=== PATIENT | male | born 1950 | race Hispanic/Latino ===

== ENCOUNTER → 2017-11-25 | Outpatient (CLI) | payer OTHER | END | disposition home or self-care (01) | LOC: RAH 10:16 | PROVIDERS: ATTEND Urology | DX: K80.20 Calculus of gallbladder without cholecystitis without obstruction (principal); N20.0 Calculus of kidney; Z87.442 Personal history of urinary calculi | CPT/HCPCS: 74018; 76100 ==

== ENCOUNTER → 2018-06-02 | Outpatient (CLI) | payer OTHER | END | disposition home or self-care (01) | LOC: RAH 09:35 | PROVIDERS: ATTEND Urology | DX: N20.0 Calculus of kidney (principal); M47.895 Other spondylosis, thoracolumbar region | CPT/HCPCS: 74018; 76100 ==

== ENCOUNTER → 2020-12-16 | Outpatient (CLI) | payer OTHER | END | disposition home or self-care (01) | LOC: RAH 08:14 | PROVIDERS: ATTEND Urology | DX: N20.0 Calculus of kidney (principal); K80.20 Calculus of gallbladder without cholecystitis without obstruction; K57.30 Diverticulosis of large intestine without perforation or abscess without bleeding | CPT/HCPCS: 74176 ==

== ENCOUNTER 2021-02-24 13:00 | Inpatient (IN) | payer OTHER ==
[~2021-02-24] VITALS: Ht 182.9 cm; Wt 74.4 kg
[2021-02-24 11:46] LABS: BASOPHILS % (AUTO) 0.6 % (0.0-5.0); EOSINOPHILS % (AUTO) 1.9 % (0.0-8.0); HEMATOCRIT 50.6 % (42-54); LYMPHOCYTES % (AUTO) 28.1 % (21.0-51.0); MEAN CORPUSCULAR HEMOGLOBIN 27.8 pg (27.0-33.0); MEAN CORPUSCULAR HGB CONC 32.4 g/dL (32.0-36.0); MEAN CORPUSCULAR VOLUME 85.9 fL (79-99); PLATELET COUNT (AUTO) 276 K/uL (130-400); RED BLOOD CELL COUNT(AUTO) 5.89 MIL/uL (4.50-6.20); RED CELL DISTRIBUTION WIDTH 14.7 % (11.0-15.5)
[2021-02-24 11:55] LABS: HEMOGLOBIN A1C 5.9 % (4.0-6.0)
[2021-02-24 12:00] LABS: INR 0.98 (0.85-1.15); PROTHROMBIN TIME 10.7 SEC (9.6-11.6)
[2021-02-24 12:01] LABS: BILIRUBIN,TOTAL 0.8 mg/dL (0.2-1.0); CREATININE 1.2 mg/dL (0.5-1.5); POTASSIUM 3.7 mmol/L (3.5-5.1); TOTAL PROTEIN, SERUM 8.3 g/dL (6.0-8.3)
[2021-02-27 09:41] VITALS: BP 140/68
[2021-02-27] MEDS ORDERED: METO5TAB2 PO (10:14)
[2021-02-27] MEDS ORDERED: AEC81 PO (10:14)
[2021-02-27] MEDS ORDERED: ATOR40TA69 PO (10:14)
[2021-02-27] MEDS ORDERED: PANT40TA54 PO (10:14)
[2021-02-27] MEDS ORDERED: FINA5TAB41 PO (10:14)
[2021-02-27] MEDS ORDERED: POTA10TA9 PO (10:14)
[2021-02-27] MEDS ORDERED: CHLO50TA PO (10:14)
[2021-02-27] MEDS ORDERED: SUCR1TAB28 PO (10:14)
[2021-02-27] MEDS ORDERED: IBUP-2077 PO (10:14)
[2021-02-28] VITALS (16 sets, daily range): BP systolic 89–172; BP diastolic 39–110
[2021-02-28] MEDS: CEFAZOLIN SODIUM 1 GM VIAL IVP SCH ×2 (05:00→12:00)
[2021-02-28] MEDS ORDERED: 0.9%NACL 1000ML 1,000 ML IV ONE (09:26)
[2021-02-28] MEDS ORDERED: AMINOCAPROIC ACID 5,000MG VIAL 15,000 MG in 0.9% NACL 500ML IV.SOLN 420 ML IV PRN (10:00)
[2021-02-28] MEDS ORDERED: EPINEPHRINE PF 1MG AMP 10 MG in 0.9% NACL 250ML 240 ML IV PRN (10:00)
[2021-02-28] MEDS ORDERED: NOREPINEPHRINE BITARTRATE 8 MG in DEXTROSE 5%-WATER 250 ML IV PRN (10:00)
[2021-02-28] MEDS ORDERED: CEFAZOLIN SODIUM 1 GM VIAL ONE (10:16)
[2021-02-28] MEDS ORDERED: OCTYL 2-CYANOACRYLATE 1 EACH TP ONE (10:16)
[2021-02-28] MEDS ORDERED: PAPAVERINE HCL 30 MG/ML 2ML VIAL ONE (10:17)
[2021-02-28] MEDS ORDERED: NITROGLYCERIN 50MG/D5W 250ML 1 BOT ONE (10:18)
[2021-02-28] MEDS ORDERED: ESMOLOL HCL 10 MG/ML 10 ML VIAL ONE (11:58)
[2021-02-28] MEDS ORDERED: HEPARIN 10,000 UNIT/10ML (1,000 UNIT/ML) VIAL ONE ×2 (11:58→12:25)
[2021-02-28] MEDS ORDERED: PROTAMINE SULFATE 10 MG/ML 25ML VIAL IV ONE (11:58)
[2021-02-28] MEDS ORDERED: EPINEPHRINE PF 1MG AMP ONE (11:58)
[2021-02-28] MEDS ORDERED: AMINOCAPROIC ACID 5,000MG VIAL ONE (11:58)
[2021-02-28] MEDS ORDERED: SODIUM BICARB 50MEQ 50ML VIAL 150 ML ONE (11:58)
[2021-02-28] MEDS ORDERED: LIDOCAINE PF 100MG/5ML (2%) SYRINGE 5ML ONE ×2 (11:58→12:00)
[2021-02-28] MEDS ORDERED: NOREPINEPHRINE BITARTRATE 1 MG/1 ML ML IV ONE (11:58)
[2021-02-28] MEDS ORDERED: FENTANYL CITRATE PF 50 MCG/1 ML 20ML VIAL IJ ONE (11:59)
[2021-02-28] MEDS ORDERED: ROCURONIUM 10MG/1ML SYR 10 MG/ML ML ONE (11:59)
[2021-02-28] MEDS ORDERED: MIDAZOLAM HCL 1 MG/ML 2ML VIAL ONE (11:59)
[2021-02-28] MEDS ORDERED: PROPOFOL 10 MG/ML 20ML VIAL IV ONE (11:59)
[2021-02-28] MEDS ORDERED: ETOMIDATE 20MG VIAL ONE (11:59)
[2021-02-28] MEDS ORDERED: ATROPINE 1MG SYG IVP ONE (12:23)
[2021-02-28 12:34] LABS: ABG BASE EXCESS -1.2 mmol/L (-2.0-3.0); ABG HCO3 25.4 mmol/L (21.0-28.0); ABG OXYGEN SATURATION 99.3 % (95.0-99.0); ABG PCO2 49 mmHg (35-48)
[2021-02-28] MEDS ORDERED: AMIODARONE 150MG VIAL ONE (12:34)
[2021-02-28] MEDS ORDERED: SODIUM BICARB 50MEQ 50ML VIAL 250 ML ONE (12:37)
[2021-02-28] MEDS ORDERED: LABETALOL 20MG VIAL IV ONE (12:51)
[2021-02-28 13:14] LABS: ABG HCO3 32.4 mmol/L (21.0-28.0); ABG OXYGEN SATURATION 99.2 % (95.0-99.0); ABG PCO2 54 mmHg (35-48)
[2021-02-28] MEDS ORDERED: POTASSIUM CHLORIDE 20MEQ/100ML 300 ML IV ONE (13:14)
[2021-02-28 14:31] LABS: ABG BASE EXCESS 2.3 mmol/L (-2.0-3.0); ABG HCO3 27.4 mmol/L (21.0-28.0); ABG OXYGEN SATURATION 99.2 % (95.0-99.0); ABG PCO2 45 mmHg (35-48)
[2021-02-28] MEDS ORDERED: SODIUM BICARB 50MEQ 50ML VIAL IV PRN (15:00)
[2021-02-28] MEDS ORDERED: EPINEPHRINE PF 1MG AMP 10 MG in DEXTROSE 5%-WATER 250 ML IV PRN (15:00)
[2021-02-28] MEDS ORDERED: 0.9%NACL 10ML VIAL IVP PRN (15:00)
[2021-02-28] MEDS ORDERED: ASPIRIN 81MG CHEW TAB PO ONE (15:00)
[2021-02-28] MEDS ORDERED: DEXTROSE 50%-WATER 50 ML DISP.SYRIN IV PRN (15:00)
[2021-02-28] MEDS ORDERED: CALCIUM GLUC 1GM 1 GM in 0.9%NACL 50ML 50 ML IV PRN (15:00)
[2021-02-28] MEDS ORDERED: AMINOCAPROIC ACID 5,000MG VIAL 15,000 MG in 0.9% NACL 250ML 250 ML IV SCH (15:00)
[2021-02-28] MEDS ORDERED: GLUCAGON 1MG KIT 1 MG ML IM PRN (15:00)
[2021-02-28] MEDS ORDERED: PROPOFOL 1000 MG/100 ML 100 ML IV PRN (15:00)
[2021-02-28] MEDS ORDERED: MORPHINE 2 MG SYG IV PRN (15:00)
[2021-02-28] MEDS ORDERED: ALBUMIN (HUMAN) 5% 250 ML IV PRN (15:00)
[2021-02-28] MEDS ORDERED: 0.9% NACL 500ML IV.SOLN 500 ML IV SCH (15:00)
[2021-02-28] MEDS ORDERED: ACETAMINOPHEN 650 MG SUPPOSITORY RC PRN (15:00)
[2021-02-28] MEDS ORDERED: ONDANSETRON 4MG INJ IV PRN (15:00)
[2021-02-28] MEDS ORDERED: NITROGLYCERIN 50MG/D5W 250ML 250 BOT IV SCH (15:00)
[2021-02-28] MEDS ORDERED: POTASSIUM PHOS 15 mMOL+NS250ML 250 ML IV PRN (15:00)
[2021-02-28] MEDS ORDERED: NOREPINEPHRIN 4MG/NS 250ML 250 ML IV PRN (15:00)
[2021-02-28] MEDS ORDERED: INSULIN REGULAR, HUMAN 3ML 100 UNIT in 0.9%NACL 100ML 99 ML IV SCH ×2 (15:00)
[2021-02-28] MEDS: MORPHINE 4 MG SYG IV PRN ×2 (15:39→18:45)
[2021-02-28 15:50] LABS: ABG BASE EXCESS 0.3 mmol/L (-2.0-3.0); ABG HCO3 25.9 mmol/L (21.0-28.0); ABG OXYGEN SATURATION 97.8 % (95.0-99.0); ABG PCO2 46 mmHg (35-48)
[2021-02-28] MEDS: 0.9%NACL 1000ML 1,000 ML IV SCH ×2 (16:15→19:28)
[2021-02-28] MEDS: SUCRALFATE 1 GM TABLET PO SCH (16:16)
[2021-02-28] MEDS: METOCLOPRAMIDE 5 MG TABLET PO SCH (16:17)
[2021-02-28 16:31] LABS: HEMATOCRIT 41.9 % (42-54); MEAN CORPUSCULAR HEMOGLOBIN 27.5 pg (27.0-33.0); MEAN CORPUSCULAR HGB CONC 32.9 g/dL (32.0-36.0); MEAN CORPUSCULAR VOLUME 83.6 fL (79-99); RED BLOOD CELL COUNT(AUTO) 5.01 MIL/uL (4.50-6.20); RED CELL DISTRIBUTION WIDTH 14.6 % (11.0-15.5); WHITE BLOOD COUNT (AUTO) 25.6 K/uL (4.8-10.8)
[2021-02-28 16:42] LABS: INR 1.07 (0.85-1.15); PROTHROMBIN TIME 11.6 SEC (9.6-11.6)
[2021-02-28 16:43] LABS: PARTIAL THROMBOPLASTIN TIME 20.8 SEC (26.3-35.5)
[2021-02-28 16:45] LABS: CREATININE 1.1 mg/dL (0.5-1.5); MAGNESIUM 1.6 mg/dL (1.80-2.40); PHOSPHORUS 3.4 mg/dL (2.5-4.9)
[2021-02-28 16:51] LABS: ABG BASE EXCESS 0.7 mmol/L (-2.0-3.0); ABG HCO3 26.5 mmol/L (21.0-28.0); ABG OXYGEN SATURATION 98.5 % (95.0-99.0); ABG PCO2 46 mmHg (35-48)
[2021-02-28] MEDS: MAGNESIUM 2GM PREMIX 50ML 50 ML IV PRN (18:18)
[2021-02-28 18:28] LABS: ABG BASE EXCESS 1.5 mmol/L (-2.0-3.0); ABG HCO3 27.5 mmol/L (21.0-28.0); ABG PCO2 49 mmHg (35-48)
[2021-02-28] MEDS: POTASSIUM CHLORIDE 20MEQ/100ML 100 ML IV PRN ×2 (19:00→20:29)
[2021-02-28] MEDS ORDERED: ALBUMIN (HUMAN) 5% 250 ML IV ONE (19:33)
[2021-02-28] MEDS: CEFAZOLIN SODIUM 1 GM VIAL IV SCH (19:54)
[2021-02-28] MEDS: ACETAMINOPHEN 325 MG TAB PO PRN (20:01)
[2021-02-28] MEDS: FAMOTIDINE 20MG VIAL IV SCH (20:01)
[2021-02-28] MEDS: ATORVASTATIN 40 MG TABLET PO SCH (20:02)
[2021-02-28 20:23] LABS: ABG BASE EXCESS -0.8 mmol/L (-2.0-3.0); ABG HCO3 24.6 mmol/L (21.0-28.0); ABG OXYGEN SATURATION 96.6 % (95.0-99.0); ABG PCO2 44 mmHg (35-48)
[2021-02-28] MEDS ORDERED: PHARMACY COMMUNICATION MISC SCH (20:30)
[2021-02-28 21:16] LABS: ABG HCO3 28.8 mmol/L (21.0-28.0); ABG OXYGEN SATURATION 96.8 % (95.0-99.0); ABG PCO2 49 mmHg (35-48)
[2021-02-28 22:15] LABS: ABG BASE EXCESS 0.3 mmol/L (-2.0-3.0); ABG HCO3 26.1 mmol/L (21.0-28.0); ABG OXYGEN SATURATION 96.8 % (95.0-99.0); ABG PCO2 47 mmHg (35-48)
[2021-02-28 23:32] LABS: ABG BASE EXCESS 1.3 mmol/L (-2.0-3.0); ABG HCO3 27.2 mmol/L (21.0-28.0); ABG OXYGEN SATURATION 96.6 % (95.0-99.0); ABG PCO2 48 mmHg (35-48)
[2021-02-28] MEDS: TRAMADOL HCL 50 MG TABLET PO PRN (23:56)
[2021-03-01] VITALS (27 sets, daily range): BP systolic 91–140; BP diastolic 37–63
[2021-03-01] MEDS: ACETAMINOPHEN 325 MG TAB PO PRN (00:41)
[2021-03-01] MEDS: CEFAZOLIN SODIUM 1 GM VIAL IVP SCH (01:39)
[2021-03-01] MEDS: CEFAZOLIN SODIUM 1 GM VIAL IV SCH ×2 (03:16→12:05)
[2021-03-01 03:24] LABS: ABG BASE EXCESS 0.1 mmol/L (-2.0-3.0); ABG HCO3 27.2 mmol/L (21.0-28.0); ABG PCO2 54 mmHg (35-48)
[2021-03-01 03:56] LABS: HEMATOCRIT 38.4 % (42-54); MEAN CORPUSCULAR HEMOGLOBIN 28.2 pg (27.0-33.0); MEAN CORPUSCULAR HGB CONC 32.6 g/dL (32.0-36.0); MEAN CORPUSCULAR VOLUME 86.5 fL (79-99); RED BLOOD CELL COUNT(AUTO) 4.44 MIL/uL (4.50-6.20); WHITE BLOOD COUNT (AUTO) 17.3 K/uL (4.8-10.8)
[2021-03-01 04:10] LABS: CREATININE 1.3 mg/dL (0.5-1.5); MAGNESIUM 1.8 mg/dL (1.80-2.40); PHOSPHORUS 4.2 mg/dL (2.5-4.9); POTASSIUM 4.3 mmol/L (3.5-5.1)
[2021-03-01 04:14] LABS: INR 1.06 (0.85-1.15); PROTHROMBIN TIME 11.5 SEC (9.6-11.6)
[2021-03-01 04:16] LABS: PARTIAL THROMBOPLASTIN TIME 26.5 SEC (26.3-35.5)
[2021-03-01] MEDS: MAGNESIUM 2GM PREMIX 50ML 50 ML IV PRN (04:16)
[2021-03-01 04:17] LABS: ABG BASE EXCESS -0.3 mmol/L (-2.0-3.0); ABG HCO3 24.9 mmol/L (21.0-28.0); ABG OXYGEN SATURATION 97.7 % (95.0-99.0); ABG PCO2 43 mmHg (35-48)
[2021-03-01] MEDS: SUCRALFATE 1 GM TABLET PO SCH ×2 (07:30→16:30)
[2021-03-01] MEDS: TRAMADOL HCL 50 MG TABLET PO PRN ×2 (08:03→23:56)
[2021-03-01] MEDS ORDERED: IPRATROPIUM/ALBUTEROL SULFATE 3 ML SOLUTION IH PRN (09:00)
[2021-03-01] MEDS ORDERED: ASPIRIN 81MG CHEW TAB ONE (09:47)
[2021-03-01] MEDS: METOCLOPRAMIDE 5 MG TABLET PO SCH ×3 (10:03→17:28)
[2021-03-01] MEDS: FAMOTIDINE 20MG VIAL IV SCH ×2 (10:03→20:40)
[2021-03-01] MEDS: FINASTERIDE 5 MG TABLET PO SCH (10:04)
[2021-03-01] MEDS: ASPIRIN 81MG CHEW TAB PO SCH (12:05)
[2021-03-01] MEDS: ATORVASTATIN 40 MG TABLET PO SCH (20:40)
[2021-03-01] MEDS ORDERED: ATORVASTATIN 20 MG TABLET PO SCH (21:00)
[2021-03-02] VITALS (13 sets, daily range): BP systolic 109–150; BP diastolic 51–74
[2021-03-02] MEDS: ACETAMINOPHEN 325 MG TAB PO PRN (02:49)
[2021-03-02 05:09] LABS: HEMATOCRIT 38.8 % (42-54); MEAN CORPUSCULAR HEMOGLOBIN 27.4 pg (27.0-33.0); MEAN CORPUSCULAR HGB CONC 31.4 g/dL (32.0-36.0); MEAN CORPUSCULAR VOLUME 87.2 fL (79-99); RED BLOOD CELL COUNT(AUTO) 4.45 MIL/uL (4.50-6.20); WHITE BLOOD COUNT (AUTO) 16.1 K/uL (4.8-10.8)
[2021-03-02 05:17] LABS: CREATININE 1.1 mg/dL (0.5-1.5); POTASSIUM 3.6 mmol/L (3.5-5.1)
[2021-03-02] MEDS: POTASSIUM CHLORIDE 20MEQ/100ML 100 ML IV PRN (05:51)
[2021-03-02] MEDS ORDERED: KCL 20 MEQ ERTAB PO PRN (07:30)
[2021-03-02] MEDS ORDERED: POTASSIUM CHLORIDE 20MEQ/100ML 100 ML IV PRN (07:30)
[2021-03-02] MEDS ORDERED: POTASSIUM CHLORIDE 10% ELIXIR 20 MEQ/15 ML UDCUP PO PRN (07:30)
[2021-03-02] MEDS ORDERED: LIDOCAINE HCL-MPF 1% 2ML VIAL IV PRN (07:30)
[2021-03-02] MEDS: FINASTERIDE 5 MG TABLET PO SCH (07:52)
[2021-03-02] MEDS: FAMOTIDINE 20MG TAB PO SCH ×2 (07:52→21:20)
[2021-03-02] MEDS: METOCLOPRAMIDE 5 MG TABLET PO SCH ×3 (07:52→17:25)
[2021-03-02] MEDS: FUROSEMIDE 20 MG TABLET PO SCH (07:52)
[2021-03-02] MEDS: SUCRALFATE 1 GM TABLET PO SCH ×2 (07:52→17:25)
[2021-03-02] MEDS: METOPROLOL TARTRATE 25 MG TAB PO SCH ×2 (07:53→21:20)
[2021-03-02] MEDS: ASPIRIN 81MG CHEW TAB PO SCH (07:53)
[2021-03-02] MEDS: ENOXAPARIN SODIUM 30 MG/0.3 ML SQ SCH (07:54)
[2021-03-02] MEDS: TRAMADOL HCL 50 MG TABLET PO PRN ×2 (07:57→18:22)
[2021-03-02] MEDS: ATORVASTATIN 40 MG TABLET PO SCH (21:20)
[2021-03-03] MEDS: TRAMADOL HCL 50 MG TABLET PO PRN ×2 (00:24→15:20)
[2021-03-03 03:40] VITALS: BP 122/63
[2021-03-03 03:46] LABS: HEMATOCRIT 37.4 % (42-54); MEAN CORPUSCULAR HEMOGLOBIN 27.7 pg (27.0-33.0); MEAN CORPUSCULAR HGB CONC 32.4 g/dL (32.0-36.0); MEAN CORPUSCULAR VOLUME 85.6 fL (79-99); RED BLOOD CELL COUNT(AUTO) 4.37 MIL/uL (4.50-6.20); RED CELL DISTRIBUTION WIDTH 14.6 % (11.0-15.5); WHITE BLOOD COUNT (AUTO) 17.7 K/uL (4.8-10.8)
[2021-03-03 04:06] LABS: POTASSIUM 3.7 mmol/L (3.5-5.1)
[2021-03-03] MEDS: METOCLOPRAMIDE 5 MG TABLET PO SCH ×3 (05:49→16:47)
[2021-03-03] MEDS: SUCRALFATE 1 GM TABLET PO SCH ×2 (05:49→15:20)
[2021-03-03 08:00] VITALS: BP 130/65
[2021-03-03] MEDS: ENOXAPARIN SODIUM 30 MG/0.3 ML SQ SCH (08:59)
[2021-03-03] MEDS: ASPIRIN 81MG CHEW TAB PO SCH (09:00)
[2021-03-03] MEDS: FAMOTIDINE 20MG TAB PO SCH ×2 (09:00→21:57)
[2021-03-03] MEDS: METOPROLOL TARTRATE 25 MG TAB PO SCH ×2 (09:01→21:57)
[2021-03-03] MEDS: FUROSEMIDE 20 MG TABLET PO SCH (09:01)
[2021-03-03] MEDS: FINASTERIDE 5 MG TABLET PO SCH (09:01)
[2021-03-03 11:48] VITALS: BP 113/67
[2021-03-03 15:36] VITALS: BP 119/67
[2021-03-03 19:07] VITALS: BP 122/62
[2021-03-03] MEDS: ATORVASTATIN 40 MG TABLET PO SCH (21:57)
[2021-03-03 23:23] VITALS: BP 122/66
[2021-03-04] MEDS: TRAMADOL HCL 50 MG TABLET PO PRN ×2 (03:34→08:10)
[2021-03-04 03:54] VITALS: BP 108/61
[2021-03-04 08:00] VITALS: BP 127/70
[2021-03-04] MEDS: ENOXAPARIN SODIUM 30 MG/0.3 ML SQ SCH (08:09)
[2021-03-04] MEDS: METOPROLOL TARTRATE 25 MG TAB PO SCH ×2 (08:09→21:55)
[2021-03-04] MEDS: FAMOTIDINE 20MG TAB PO SCH ×2 (08:10→21:55)
[2021-03-04] MEDS: FINASTERIDE 5 MG TABLET PO SCH (08:10)
[2021-03-04] MEDS: SUCRALFATE 1 GM TABLET PO SCH ×2 (08:10→16:00)
[2021-03-04] MEDS: FUROSEMIDE 20 MG TABLET PO SCH (08:10)
[2021-03-04] MEDS: ASPIRIN 81MG CHEW TAB PO SCH (08:10)
[2021-03-04] MEDS: METOCLOPRAMIDE 5 MG TABLET PO SCH ×3 (08:10→16:00)
[2021-03-04] MEDS ORDERED: METO25 PO (10:46)
[2021-03-04] MEDS ORDERED: FURO20TA6 PO (10:46)
[2021-03-04 12:00] VITALS: BP 112/66
[2021-03-04 16:00] VITALS: BP 117/69
[2021-03-04 20:00] VITALS: BP 134/69
[2021-03-04] MEDS: ATORVASTATIN 40 MG TABLET PO SCH (21:55)
[2021-03-05] VITALS: BP 110/64
[2021-03-05] MEDS: TRAMADOL HCL 50 MG TABLET PO PRN (03:45)
[2021-03-05 04:00] VITALS: BP 130/75
[2021-03-05] MEDS: SUCRALFATE 1 GM TABLET PO SCH ×2 (06:40→15:56)
[2021-03-05] MEDS: METOCLOPRAMIDE 5 MG TABLET PO SCH ×2 (06:40→08:36)
[2021-03-05 08:26] VITALS: BP 113/61
[2021-03-05] MEDS: FINASTERIDE 5 MG TABLET PO SCH (08:35)
[2021-03-05] MEDS: METOPROLOL TARTRATE 25 MG TAB PO SCH (08:35)
[2021-03-05] MEDS: ASPIRIN 81MG CHEW TAB PO SCH (08:35)
[2021-03-05] MEDS: FAMOTIDINE 20MG TAB PO SCH (08:36)
[2021-03-05] MEDS: ENOXAPARIN SODIUM 30 MG/0.3 ML SQ SCH (08:36)
[2021-03-05] MEDS: FUROSEMIDE 20 MG TABLET PO SCH (08:36)
[2021-03-05 12:40] VITALS: BP 108/61
[2021-03-05] MEDS: ACETAMINOPHEN 325 MG TAB PO PRN (16:00)
[2021-03-05 16:05] VITALS: BP 119/72
== END 2021-03-05 17:32 | disposition home or self-care (01) | DRG 235 ==
LOC: EDSTATUS 13:00 → DAHIP 02-28 09:25 → 2CV 02-28 12:02 → 2CH 03-01 05:08 → 2DH 03-02 20:36 → 4AH 03-04 03:33 → 4DH 03-04 07:15
PROVIDERS: ADMIT Thoracic Surgery (Cardiothoracic Vascular Surgery); ATTEND Thoracic Surgery (Cardiothoracic Vascular Surgery)
PROC: 02100Z9 Bypass Coronary Artery, One Artery from Left Internal Mammary, Open Approach (ICD-10-PCS; principal; 2021-02-28 12:00)
PROC: 021109W Bypass Coronary Artery, Two Arteries from Aorta with Autologous Venous Tissue, Open Approach (ICD-10-PCS; 2021-02-28 12:00)
PROC: 06BQ4ZZ Excision of Left Saphenous Vein, Percutaneous Endoscopic Approach (ICD-10-PCS; 2021-02-28 12:00)
DX: I25.10 Atherosclerotic heart disease of native coronary artery without angina pectoris (principal); J95.1 Acute pulmonary insufficiency following thoracic surgery; E78.5 Hyperlipidemia, unspecified; I10 Essential (primary) hypertension; E78.00 Pure hypercholesterolemia, unspecified; Z79.899 Other long term (current) drug therapy; Z87.891 Personal history of nicotine dependence; Z20.822 Contact with and (suspected) exposure to COVID-19; Y83.8 Other surgical procedures as the cause of abnormal reaction of the patient, or of later complication, without mention of misadventure at the time of the procedure; Y71.8 Miscellaneous cardiovascular devices associated with adverse incidents, not elsewhere classified; Y92.89 Other specified places as the place of occurrence of the external cause
CPT/HCPCS: 36415; 71045; 80048; 80053; 80061; 82435; 82803; 82947; 82948; 83036; 83605; 83735; 84100; 84132; 84295; 85018; 85025; 85027; 85347; 85610; 85730; 86850; 86900; 86901; 86923; 87635; 93005; 94002; 94150; 94664; 97039; A7048; G0378; J0171; J0282; J0461; J0610; J0690; J1644; J1650; J1815; J2001; J2250; J2270; J2440; J2704; J2720; J3010; J3475; J3480; J3490; J7030; J7040; J7050; J7060; J7120; P9045